=== PATIENT | female | born 1985 | race Caucasian/White ===

== ENCOUNTER 2018-01-06 08:09 | Emergency (ER) | payer SELFPAY ==
[2018-01-06] MEDS ORDERED: Ketorolac Tromethamine 30 MG/ML VIAL ONE (08:28)
== END 2018-01-06 09:30 | disposition home or self-care (01) ==
LOC: ERS 08:09
DX: J06.9 Acute upper respiratory infection, unspecified (principal); H72.91 Unspecified perforation of tympanic membrane, right ear
CPT/HCPCS: 96372; J1885